=== PATIENT | female | born 1965 | race Caucasian/White ===

== ENCOUNTER → 2016-11-05 | Outpatient (CLI) | payer OTHER ==
[~2016-11-05] MED LIST: CLC100 PO; CLTP PO; CYAN250T PO; IBUP600T44 PO; LEVO100T7 PO; LEVO112T2 PO; MISCCAP80 PO; MULT-506 PO; OXYC-57 PO; SENNTAB23 PO; SYN112 PO
[2016-11-05 18:19] LABS: THYROID STIMULATING HORMONE 0.109 uIu/ml (0.300-4.500)
== END | disposition home or self-care (01) ==
LOC: C.LAB1850 16:58
PROVIDERS: ATTEND Nurse Practitioner Adult Health
DX: E03.9 Hypothyroidism, unspecified (principal)

== ENCOUNTER → 2016-11-21 | Outpatient (CLI) | payer OTHER | END | disposition home or self-care (01) | LOC: C.LABSPEC 10:52 | PROVIDERS: ATTEND Family Medicine | DX: J02.9 Acute pharyngitis, unspecified (principal) ==

== ENCOUNTER → 2017-01-27 | Outpatient (CLI) | payer OTHER ==
[2017-01-27 09:40] LABS: HEMATOCRIT 39.9 % (37-47); MEAN CELL VOLUME 92.4 fL (80-100); MEAN CORPUSCULAR HEMOGLOBIN 30.1 pg (25-34); MEAN CORPUSCULAR HGB CONC 32.6 g/dl (32-36); MEAN PLATELET VOLUME 10.6 fL (7.4-10.4); PLATELET COUNT 260 K/uL (130-400); RED BLOOD COUNT 4.32 M/uL (4.2-5.4); WHITE BLOOD COUNT 5.33 K/uL (4.8-10.8)
[2017-01-27 09:54] LABS: ALT/SGPT 19 U/L (12-78); AST/SGOT 9 U/L (15-37); BLOOD UREA NITROGEN 13 mg/dl (7-18); BUN/CREATININE RATIO 20.2 (10-20); CALCIUM 8.8 mg/dl (8.5-10.1); CARBON DIOXIDE 28 mmol/L (21-32); CHLORIDE 109 mmol/L (98-107); CREATININE 0.65 mg/dl (0.60-1.20); GLUCOSE 85 mg/dl (70-99); POTASSIUM 3.6 mmol/L (3.5-5.1); SODIUM 143 mmol/L (136-145)
[2017-01-27 10:05] LABS: ALB/GLOB RATIO 1.3 (0.9-2); ALKALINE PHOSPHATASE 69 U/L (45-117); CHOLESTEROL 183 mg/dl (0-200); CHOLESTEROL/HDL RATIO 3.7; HDL CHOLESTEROL 49 mg/dl; LDL CHOLESTEROL CALCULATED 115 mg/dl; THYROID STIMULATING HORMONE 0.635 uIu/ml (0.300-4.500); TRIGLYCERIDES 97 mg/dl (0-150); VERY LOW DENSITY LIPOPROT CALC 19 mg/dl
== END | disposition home or self-care (01) ==
LOC: C.LAB1850 07:14
PROVIDERS: ATTEND Nurse Practitioner Adult Health
DX: Z13.220 Encounter for screening for lipoid disorders (principal); E03.9 Hypothyroidism, unspecified

== ENCOUNTER → 2017-04-04 | Outpatient (CLI) | payer OTHER ==
--- NOTE | 2017-04-04 15:09 | MAMMOGRAPHY REPORT ---
UNILATERAL LEFT DIGITAL DIAGNOSTIC MAMMOGRAM TOMOSYNTHESIS AND TARGETED LEFT ULTRASOUND: 04/04/2017 CLINICAL HISTORY: The patient reports a palpable tender left breast lump which she felt on Friday. S he reports it currently feels much smaller. She denies any breast erythema. TECHNIQUE: Breast tomosynthesis in addition to standard 2D mammography was performed. Left CC and M LO 2-D and tomosynthesis images were obtained. COMPARISON: Comparison is made to exams dated: 07/31/2016 mammogram, 11/24/2014 mammogram, 05/13/2013 m ammogram, 04/23/2012 mammogram, 03/26/2011 mammogram, and 03/21/2010 mammogram - [facility] enter. BREAST COMPOSITION: The tissue of the left breast is heterogeneously dense, which may obscure small masses. FINDINGS: A triangle marker zambrano the site of the palpable lump in the left upper outer quadrant. T here are numerous adjacent circumscribed benign-appearing masses within the left central/12 to 1:00 b reast in the region of the marker. Multiple other circumscribed benign appearing masses are also see n within the left breast. The masses are slightly fluctuating compared to prior exams. Given the mu ltiplicity and circumscribed nature of the masses, they likely represent cysts. Scattered benign-clara earing calcifications are not significantly changed, many of which demonstrate layering and are consi stent with milk of calcium. There are no suspicious masses, calcifications, or areas of architectura l distortion noted within the left breast mammographically. Targeted ultrasound was performed of the area of the palpable lump pointed out by the patient, in the left 12:00 periareolar region. At the site of the palpable lump there is an oval circumscribed anec hoic mass consistent with a simple cyst, measuring 2.2 x 1.7 x 3.8 cm. Numerous other round/oval cir cumscribed anechoic masses are also noted, consistent with cysts, including a 4.1 x 2.9 cm cyst in th e left subareolar breast, and a 2.4 x 2.4 cm cyst in the left breast at 12:00, 3 cm from the nipple. These correspond with the mammographic masses and are consistent with benign cysts. IMPRESSION: ACR BI-RADS CATEGORY 2: BENIGN, TARGETED ULTRASOUND ACR BI-RADS CATEGORY 2: BENIGN Multiple benign cysts seen within the left 12:00 and subareolar breast, which correspond with the pal pable lump pointed out by the patient. The largest cyst measures 4.1 cm. There is no mammographic o r targeted sonographic evidence of malignancy. Recommend clinical follow-up for the palpable left br east lump, and recommend routine bilateral screening mammograms which are due July 2017. The patient has been verbally notified of the results. Approximately 10% of breast cancers are not detected with mammography. A negative mammographic report should not delay biopsy if a clinically suggestive mass is present. Marlene Smith M.D. ah/:04/04/2017 14:54:43 Sec Reporting Consultant: Lili DENISE(Jin)(M), [facility] letter sent: Normal 1/2 BI-RADS Code: ACR BI-RADS Category 2: Benign Ultrasound BI-RADS: ACR BI-RADS Category 2: Benign
== END | disposition home or self-care (01) ==
LOC: C.MAMM 13:49
PROVIDERS: ATTEND Obstetrics & Gynecology
DX: N63 Unspecified lump in breast (principal)

== ENCOUNTER → 2017-05-30 | Day surgery (SDC) | payer OTHER ==
[2017-05-22 12:35] VITALS: BMI 27.0
[~2017-05-30] VITALS: Ht 170.2 cm; Wt 79.5 kg
[~2017-05-30] MED LIST changes: -CLC100 PO; -CLTP PO; -CYAN250T PO; -IBUP600T44 PO; +LIDOCAINE HCL 2% 2 ML VIAL (20MG/ML) ONE; -OXYC-57 PO; +PROPOFOL IV EMULSION 10 MG/ML 20 ML VIAL IV ONE; +SODIUM CHLORIDE 0.9% 500ML 500 ML IV ONE; -SYN112 PO
[2017-05-30 09:17] VITALS: Ht 170.2 cm; Wt 79.5 kg
--- NOTE | 2017-05-30 09:31 | Endo History and Physical ---
History & Physical Date of Service: May 30, 2017. Chief Complaint: ROUTINE SCREENING Referring Physician: DR. NEGRO History of Present Illness 51 yo CF who presents for screening colonoscopy. Past Surgical History Hx Cardiac Surgery: No Hx Internal Defibrillator: No Hx Pacemaker: No Hx Abdominal Surgery: Yes (HYSTER) Hx of Implantable Prosthesis: No Hx Post-Op Nausea and Vomiting: No Hx Cancer Surgery: No Hx Thoracic Surgery: No Hx Orthopedic: No Hx Urinary Tract Surgery: No Family History Colon CA Social History Smoking Status: Never Smoker Hx Substance Use: No Hx Alcohol Use: Yes (OCCASIONAL/SOCIAL) Allergies Coded Allergies: Chlorpheniramine (Verified Allergy, Unknown, HEART PALPITATIONS AND PANIC ATTACK, 05/22/17) Phenylpropanolamine (Verified Allergy, Unknown, HEART PALPITATIONS AND PANIC ATTACK, 05/22/17) Epinephrine (Verified Adverse Reaction, Severe, HEART PALPITATIONS, ) Cefdinir (Verified Adverse Reaction, Intermediate, HEART PALPITATIONS, ) Current Medications Reported Home Medications Medications Dose Route/Sig Max Daily Dose Days Date Category Dose Instructions Stool Softener (Sennosides-Docusate Sodium) 1 Tab Tab PO 05/30/17 Reported Probiotic (Probiotic Product) 1 Cap Cap 1 Cap PO QPM 05/22/17 Reported Levothyroxine Sodium 100 Mcg Tab 1 Tab PO Q2D 05/22/17 Reported ALTERNATING WITH 112MCG Synthroid (Levothyroxine Sodium) 112 Mcg Tab 112 Mcg PO Q2D 05/22/17 Reported ALTERNATING WITH 100MCG Multivitamin (Multivitamins) Tab 1 Tab PO QAM 10/10/10 Reported Vital Signs Weight (Kilograms): 79.55 Height (Feet): 5 Height (Inches): 7 Physical Exam General Appearance: WD/WN, no apparent distress Respiratory/Chest: Auscultation: breath sounds normal Cardiovascular: Heart Auscultation: RRR Abdomen: Bowel Sounds: normal Inspection & Palpation: soft, non-distended, no tenderness, guarding & rebound Assessment and Plan Assessment: 51 yo CF who presents for screening colonoscopy. Plan: Proceed with colonoscopy.
--- NOTE | 2017-05-30 10:23 | Discharge Instructions ---
Endoscopy Patient Instructions Date / Procedure(s) Performed May 30, 2017. Colonoscopy Allergy Information Coded Allergies: Chlorpheniramine (Verified Allergy, Unknown, HEART PALPITATIONS AND PANIC ATTACK, 05/22/17) Phenylpropanolamine (Verified Allergy, Unknown, HEART PALPITATIONS AND PANIC ATTACK, 05/22/17) Epinephrine (Verified Adverse Reaction, Severe, HEART PALPITATIONS, ) Cefdinir (Verified Adverse Reaction, Intermediate, HEART PALPITATIONS, ) Discharge Date / Findings May 30, 2017. Rectal polyp Internal hemorrhoids Medication Instructions OK to resume all medications today as prescribed Reported Home Medications Medications Dose Route/Sig Max Daily Dose Days Date Category Dose Instructions Stool Softener (Sennosides-Docusate Sodium) 1 Tab Tab PO 05/30/17 Reported Probiotic (Probiotic Product) 1 Cap Cap 1 Cap PO QPM 05/22/17 Reported Levothyroxine Sodium 100 Mcg Tab 1 Tab PO Q2D 05/22/17 Reported ALTERNATING WITH 112MCG Synthroid (Levothyroxine Sodium) 112 Mcg Tab 112 Mcg PO Q2D 05/22/17 Reported ALTERNATING WITH 100MCG Multivitamin (Multivitamins) Tab 1 Tab PO QAM 10/10/10 Reported Provider Instructions Activity Restrictions - No exercising or heavy lifting for 24 hours. - Do not drink alcohol the day of the procedure. - Do not drive a car or operate machinery until the day after the procedure. - Do not make any important decisions or sign important papers in 24 hours after the procedure. Following Day: - Return to full activity which may include returning to work/school. Diet Start your diet with liquids and light foods (jello, soup, juice, toast). Then eat your usual diet if not nauseated. Treatment For Common After Affects For mild abdominal pain, bloating, or excessive gas: - Rest - Eat lightly - Lie on right side Follow-Up Information Follow-up with DR. NEGRO as scheduled Anesthesia Information What You Should Know You have had a procedure that required some medicine to reduce anxiety and discomfort. This treatment is called moderate sedation. After receiving the treatment, you may be sleepy, but you will be able to breathe on your own. The effects of the treatment may last for several hours. Follow these instructions along with Activity/Diet recommendations noted above: * Do NOT do anything where dizziness or clumsiness would be dangerous. * Rest quietly at home today, then you can be up and about tomorrow. * Have a responsible person stay with you the rest of today. * You may have had an I.V. today. If so, you may take the dressing off later today. Recommendations Call your doctor if: * Trouble breathing * Continuous vomiting for more than 24 hours * Temperature above 101 degrees * Severe abdominal pain or bloating * Pain not relieved by pain medicine ordered * There is increased drainage or redness from any incision * A large amount of rectal bleeding greater than 2-3 tablespoons. (If you had a polyp/s removed or have hemorrhoids, a small amount of blood - from the rectum is to be expected.) * You have any unanswered questions or concerns. IN THE EVENT OF A SERIOUS EMERGENCY, GO TO THE NEAREST EMERGENCY ROOM Your discharge instructions were prepared by provider Gamaliel Cotton. Patient Instructions Signature Page Ktaharine Gates Patient (or Guardian) Signature/Date: I have read and understand the instructions given to me by my caregivers. Caregiver/RN/Doctor Signature/Date: The above-named patient and/or guardian has received patient instructions on this date. + Original Patient Signature Page (only) stays with chart. Please make copy for patient.
--- NOTE | 2017-05-30 10:32 | GI REPORT ---
Procedure Date: 05/30/2017 9:49 AM Procedure: Colonoscopy Indications: Screening for colorectal malignant neoplasm Medicines: Monitored Anesthesia Care Complications: No immediate complications. Estimated Blood Loss: Estimated blood loss: none. Procedure: Pre-Anesthesia Assessment: - Prior to the procedure, a History and Physical was performed, and patient medications and allergies were reviewed. The patient's tolerance of previous anesthesia was also reviewed. The risks and benefits of the procedure and the sedation options and risks were discussed with the patient. All questions were answered, and informed consent was obtained. Prior Anticoagulants: The patient has taken no previous anticoagulant or antiplatelet agents. ASA Grade Assessment: II - A patient with mild systemic disease. After reviewing the risks and benefits, the patient was deemed in satisfactory condition to undergo the procedure. After I obtained informed consent, the scope was passed under direct vision. Throughout the procedure, the patient's blood pressure, pulse, and oxygen saturations were monitored continuously. The scope was introduced through the anus and advanced to the terminal ileum. The colonoscopy was performed without difficulty. The patient tolerated the procedure well. The quality of the bowel preparation was good. The terminal ileum, ileocecal valve, appendiceal orifice, and rectum were photographed. Findings: A 4 mm polyp was found in the rectum. The polyp was sessile. The polyp was removed with a hot snare. Resection and retrieval were complete. Non-bleeding internal hemorrhoids were found during retroflexion. The hemorrhoids were small. Impression: - One 4 mm polyp in the rectum, removed with a hot snare. Resected and retrieved. - Non-bleeding internal hemorrhoids. Recommendation: - Resume previous diet. - Continue present medications. - Repeat colonoscopy for surveillance based on pathology results. - Return to primary care physician as previously scheduled. Gamaliel Cotton DO 05/30/2017 10:31:28 AM This report has been signed electronically. Note Initiated On: 05/30/2017 9:49 AM I attest to the content of the Intraoperative Record and orders documented therein, exceptions below
[2017-05-30 10:49] VITALS: BP 133/94; PULSE 58; O2SAT 99
--- NOTE | 2017-05-30 11:49 | Anesthesiology Progress Note ---
Anesthesia Post Op Note Date & Time May 30, 2017 at 11:49 Vital Signs Pain Intensity: 0 Vital Signs Past 12 Hours Date Time Temp Pulse Resp B/P (MAP) Pulse Ox O2 Delivery O2 Flow Rate FiO2 05/30/17 10:49 58 20 133/94 (107) 99 Room Air 05/30/17 10:34 72 20 140/80 (100) 99 Room Air 05/30/17 10:19 69 20 123/86 (98) 99 Room Air 05/30/17 09:31 36.7 71 18 126/87 (100) 97 Room Air Notes Mental Status: alert / awake / arousable, participated in evaluation Pt Amnestic to Procedure: Yes Nausea / Vomiting: adequately controlled Pain: adequately controlled Airway Patency, RR, SpO2: stable & adequate BP & HR: stable & adequate Hydration State: stable & adequate Anesthetic Complications: no major complications apparent
== END | disposition home or self-care (01) ==
LOC: C.GI 09:06
PROVIDERS: ATTEND Internal Medicine
DX: Z12.11 Encounter for screening for malignant neoplasm of colon (principal); D12.8 Benign neoplasm of rectum; K64.8 Other hemorrhoids; Z80.0 Family history of malignant neoplasm of digestive organs; Z79.899 Other long term (current) drug therapy

== ENCOUNTER → 2017-08-13 | Outpatient (CLI) | payer OTHER ==
[~2017-08-13] MED LIST changes: -LIDOCAINE HCL 2% 2 ML VIAL (20MG/ML) ONE; -PROPOFOL IV EMULSION 10 MG/ML 20 ML VIAL IV ONE; -SODIUM CHLORIDE 0.9% 500ML 500 ML IV ONE
--- NOTE | 2017-08-13 15:21 | MAMMOGRAPHY REPORT ---
BILATERAL DIGITAL DIAGNOSTIC MAMMOGRAM TOMOSYNTHESIS AND TARGETED RIGHT ULTRASOUND: 08/13/2017 CLINICAL HISTORY: Callback from screening mammogram for right breast asymmetry and associated calcifi cations as well as left breast calcifications. TECHNIQUE: Breast tomosynthesis in addition to standard 2D mammography was performed. Spot magnific ation bilateral cc and ML views and spot compression right CC and MLO tomosynthesis images including C views were obtained. COMPARISON: Comparison is made to exams dated: 08/04/2017 mammogram, 04/04/2017 ultrasound, 04/04/2017 ma mmogram, 07/31/2016 mammogram, 11/24/2014 mammogram, and 04/23/2012 mammogram - [facility]. BREAST COMPOSITION: The tissue of both breasts is heterogeneously dense, which may obscure small mas ses. FINDINGS: Spot magnification views of the left breast demonstrate grouped calcifications in the left upper outer quadrant, which are smudgy and amorphous on the cc view and demonstrate layering on the lateral view, consistent with benign milk of calcium. Additionally, the calcifications do not appear significantly changed to prior exams including the 2015 and 2014 exams. Spot compression views demonstrate an ill-defined asymmetry within the right upper outer quadrant in association with calcifications, with asymmetry measuring approximately 13 mm on the cc tomosynthesis images. The calcifications in association with the asymmetry are amorphous on the cc view and at le ast one of the calcifications demonstrates probable layering on the lateral view, suggestive of milk of calcium. The calcifications appear stable compared to prior exams including the 2015 and 2014 exa ms. Targeted ultrasound was performed of the right upper outer quadrant in the region of the mammographic asymmetry. In the right breast at 9:00, 1 cm from the nipple, there is an anechoic 6 x 7 x 4 mm mas s consistent with fibrocystic changes. Another anechoic circumscribed mass with a thin internal sept ation measuring 4 x 5 mm is seen within the right breast at 9:00, 2 cm from the nipple, consistent wi th fibrocystic changes. In the right breast at 9:00, 4 cm from the nipple, there is a lobulated slig htly hypoechoic non-circumscribed mass which measures 1.5 x 1.1 cm. A few small anechoic cystic port ions are seen, which contain echogenic foci which likely represent the calcifications seen mammograph ically. This is felt to correspond with the mammographic asymmetry and associated calcifications. W hile this could represent focal fibrocystic changes, a solid and cystic mass is not excluded. Recomm end ultrasound guided core needle biopsy for further evaluation. IMPRESSION: ACR BI-RADS CATEGORY 4: SUSPICIOUS, TARGETED ULTRASOUND ACR BI-RADS CATEGORY 4: SUSPICIO US 1. Hypoechoic 1.5 cm mass in the right breast at 9:00 on ultrasound, which is felt to correspond wit h the mammographic asymmetry with associated calcifications. While this could represent fibrocystic changes, a mixed cystic and solid mass is not excluded, therefore, ultrasound guided biopsy is recomm ended for further evaluation. 2. Grouped calcifications in the left upper outer quadrant are benign and compatible with milk of ca lcium. A phone call was made to the physician's office to confirm faxed results were received. The patient has been verbally notified of the results. She tentatively scheduled the biopsy before leaving the [facility]. Approximately 10% of breast cancers are not detected with mammography. A negative mammographic report should not delay biopsy if a clinically suggestive mass is present. Marlene Smith M.D. ah/:08/13/2017 10:50:21 White [employer] Pan Tank Operator: Maggy MURPHY)(Koko), [facility] letter sent: Abnormal 4/5 BI-RADS Code: ACR BI-RADS Category 4: Suspicious Ultrasound BI-RADS: ACR BI-RADS Category 4: Suspici ous
== END | disposition home or self-care (01) ==
LOC: C.MAMM 08:06
PROVIDERS: ATTEND Nurse Practitioner Adult Health
DX: Z12.31 Encounter for screening mammogram for malignant neoplasm of breast (principal); N64.89 Other specified disorders of breast; N63.10 Unspecified lump in the right breast, unspecified quadrant

== ENCOUNTER → 2017-08-18 | Outpatient (CLI) | payer OTHER ==
--- NOTE | 2017-08-18 08:20 | Discharge Instructions ---
Discharge Instructions Procedure Procedure Date: Aug 18, 2017. Reason for visit: Right Mass. Discharge Discharge Date: Aug 18, 2017. Discharge Diagnosis: status post breast biopsy Instructions Activity Recommendations: Additional Limitations (see below) Return to School/Work: no limitations Recommended Home Diet: No Limitations Provider Instructions: ACTIVITY RECOMMENDATIONS: * No lifting, pushing, pulling or exercising the affected side for three days. RETURN TO SCHOOL/WORK: * You may return to work/school after the procedure, but do not perform any strenuous activities for 24 to 48 hours. MEDICATIONS: * Tylenol (two 325 mg) every four to six hours if needed for mild pain (if not allergic to Tylenol). DIET: * Resume previous diet. SPECIAL CARE INSTRUCTIONS: * Keep biopsy site dry for 24 hours. May shower after 24 hours, but do not soak (bathe) incision. * May remove Tegaderm (plastic patch) tomorrow AFTER showering. * Leave the steri-strips on for one week. Allow the steri-strips to fall off by themselves. If not off after one week, you may remove them. You may place a Bandaid crosswise over the strips, if desired. * Apply ice 10 minutes on and 10 minutes off as needed. * Wear a bra at bedtime to sleep more comfortably for 2-3 days. * Your referring physician should have the results after approximately 5 to 7 business days. * Call for unusual bleeding, fever, drainage, etc or if you have any questions call during normal business hours or after hours call Dr Smith, . FOLLOW UP VISIT: Follow-up with Referring Physician as scheduled. Allergies Coded Allergies: Chlorpheniramine (Verified Allergy, Unknown, HEART PALPITATIONS AND PANIC ATTACK, 05/22/17) Phenylpropanolamine (Verified Allergy, Unknown, HEART PALPITATIONS AND PANIC ATTACK, 05/22/17) Epinephrine (Verified Adverse Reaction, Severe, HEART PALPITATIONS, ) Cefdinir (Verified Adverse Reaction, Intermediate, HEART PALPITATIONS, ) Reji Richards Recommendations: Call your doctor if: * Temperature above 101 degrees * Pain not relieved by pain medicine ordered * There is increased drainage or redness from any incision * You have any unanswered questions or concerns. Your Doctors Instructions noted above were prepared by provider Marlene Smith. Patient Signature Section: Patient Instructions Signature Page Katharine Gates Patient (or Guardian) Signature/Date: I have read and understand the instructions given to me by my caregivers. Caregiver/RN/Doctor Signature/Date: The above-named patient and/or guardian has received patient instructions on this date. + Original Patient Signature Page (only) stays with chart. Please make copy for patient.
--- NOTE | 2017-08-18 14:44 | MAMMOGRAPHY REPORT ---
ULTRASOUND GUIDED BIOPSY RIGHT BREAST: 08/18/2017 CLINICAL HISTORY: Right 9:00 breast mass. PATIENT CONSENT: The procedure, risks and benefits were discussed with the patient and informed writt en consent was obtained. A timeout was performed immediately prior to the procedure. PROCEDURE DESCRIPTION: With ultrasound guidance, aseptic technique, and lidocaine as the local anesth etic (1% lidocaine to anesthetize the skin and 1% lidocaine with epinephrine to anesthetize the deepe r tissues), the mass of concern in the right 9:00 breast was sampled 4 times with a 14-gauge Achieve biopsy needle. Immediately thereafter, with ultrasound guidance, aseptic technique, and lidocaine as the local anesthetic, a metallic localizer clip was placed centrally in the mass. Direct pressure wa s applied to the site immediately post procedure and hemostasis was achieved. Postprocedure unilater al mammograms were performed to confirm placement of the clip in the expected location of the breast mass. The patient tolerated the procedure without complication. She was given wound care instructio ns. The specimens were sent to pathology for analysis. COMPARISON: Comparison is made to exams dated: 08/13/2017 mammogram, 08/13/2017 ultrasound, 7 mammogram, 04/04/2017 ultrasound, 04/04/2017 mammogram, and 07/31/2016 mammogram - [facility]. IMPRESSION: ULTRASOUND GUIDED BIOPSY Ultrasound guided biopsy of the right 9:00 breast mass, with clip placement. The patient will receive pathology results from her referring provider. Marlene Smith M.D. ah/:08/18/2017 08:23:37 Sales Agent Trading Stamps: Lili MURPHY)(Koko), [facility]
--- NOTE | 2017-08-18 14:47 | MAMMOGRAPHY REPORT ---
UNILATERAL RIGHT DIGITAL DIAGNOSTIC MAMMOGRAM TOMOSYNTHESIS: 08/18/2017 CLINICAL HISTORY: Status post right breast biopsy. TECHNIQUE: Breast tomosynthesis in addition to standard 2D mammography was performed. Postprocedura l right CC and ML tomosynthesis images including C views were obtained. COMPARISON: Comparison is made to exams dated: 08/13/2017 mammogram, 08/13/2017 ultrasound, 04/04/2017 ultrasound, 08/04/2017 mammogram, 04/04/2017 mammogram, and 07/31/2016 mammogram - [facility]. BREAST COMPOSITION: The tissue of the right breast is heterogeneously dense, which may obscure small masses. FINDINGS: A new biopsy marker clip is seen at the site of the biopsied mass and associated calcifica tions in the right 9:00 breast. No significant postbiopsy hematoma is seen. IMPRESSION: POST PROCEDURE IMAGING FOR MARKER PLACEMENT New biopsy marker clip status post right breast biopsy. Pathology results are pending. Approximately 10% of breast cancers are not detected with mammography. A negative mammographic report should not delay biopsy if a clinically suggestive mass is present. Marlene Smith M.D. /:08/18/2017 08:34:43 Combat Rifle Crewmember: Lili DENISE(Jin)(M), [facility] BI-RADS Code: Post Procedure Imaging For Marker Placement
== END | disposition home or self-care (01) ==
LOC: C.MAMM 07:56
PROVIDERS: ATTEND Nurse Practitioner Adult Health
DX: N63.10 Unspecified lump in the right breast, unspecified quadrant (principal); D24.1 Benign neoplasm of right breast; N60.91 Unspecified benign mammary dysplasia of right breast

== ENCOUNTER 2017-10-22 16:52 | Emergency (ER) | payer OTHER ==
[~2017-10-22] VITALS: Ht 170.2 cm; Wt 84.2 kg
[2017-10-22 16:54] VITALS: BP 183/100; PULSE 77; TEMP 36.7; O2SAT 98; Ht 170.2 cm; Wt 84.2 kg
--- NOTE | 2017-10-23 20:39 | EMERGENCY ROOM VISIT NOTE ---
ED Visit Note First contact with patient: 17:01 Chief Complaint: Cut the top of my head at work. History of Present Illness: Ms. Gates is a 52-year-old white female who ambulates into the ED accompanied by female friend complaining of a laceration to the top of the head. Patient reports less than an hour ago she was at work. She was looking in a over the head cupboard and reports some of the office supplies fell out of the cupboard. She picked up the items and as she was standing up she struck the top of her head on the door of the cupboard and sustained a laceration to the top of the head. She does report after striking her head she fell to the floor but did not re- strike her head. She denies there was a loss of consciousness. She reports coworkers controlled her bleeding. She reports since the injury she has had a headache in the area of her laceration, she has been having some mild dizziness, mild blurry vision and nausea without vomiting. Currently she describes her headache as a pressure and throbbing sensation in the area of her laceration. She rates her discomfort 6/10. Her pain is nonradiating. Her pain worsens with palpation of her laceration. She has not identified any alleviating factors related to her pain. She has not taken medications for pain prior to arrival at the hospital. She denies any hearing changes, difficulty speaking, difficulty swallowing, difficulty ambulating/coordinating body movements, neck pain, extremity weakness /numbness/tingling. Review of Systems: As noted above in history of present illness. 8 body systems were reviewed and found to be negative as noted above. Past Medical History: Hypothyroidism, status post hysterectomy. Current Medications: Multivitamins, Synthroid, probiotic, stool softener. Allergies to Medications: Chlorpheniramine, epinephrine, phenylpropanolamine, cefdinir. Social History: Patient is currently employed; she feels safe in her home environment; she denies tobacco use and admits to alcohol use. Tetanus Immunization Status: Patient is unsure. Physical Examination: Vital Signs: Date Time Temp Pulse Resp B/P (MAP) Pulse Ox O2 Delivery O2 Flow Rate FiO2 10/22/17 16:54 36.7 77 18 183/100 98 Room Air GENERAL: 52-year-old female in mild distress due to pain, nontoxic-appearing, afebrile and hemodynamically stable. NEUROLOGICAL: Awake, alert and oriented to person, place and time. Answering questions appropriately and following commands. Normal gait. Good hand eye coordination. Cranial nerves II through XII grossly intact. Good short-term and long-term recall. SKIN: Warm, dry and pink. Scalp: Over the top of the head patient has a subcentimeter subcutaneous laceration. There was no active bleeding at the time of my evaluation. It was noted that there was blood throughout her hair. HEENT: Atraumatic and normocephalic. Skull: No bony deformity, depressions, swelling or ecchymosis. Moderate tenderness in the area of her laceration. No raccoon's eyes or solano signs. No drainage from the ears of the nostril; no hemotympanum. PERRLA. EOMI without nystagmus. No malocclusion. No intraoral trauma. Airway patent. Speech is clear and normal. Trachea midline. No jugular venous distention. BACK: No tenderness over the bony cervical or thoracic spines. Full range of motion of the cervical spine. ED Course: Patient is assessed as noted above. Patient's medication list was reviewed. Patient's wound was cleansed with antibacterial soap and water and a small amount of antibiotic ointment was placed over the wound. Patient was educated about today's findings and instructed on her treatment plan ; she verbalized understanding and agreement with this plan. Clinical Impression: Superficial scalp laceration. Possible mild closed head injury. Disposition: Patient discharged home in stable condition; prior to departure he was reassessed and subjectively reported she was feeling worse and rated her discomfort 7/10. Plan: Patient was encouraged to alternate ibuprofen and acetaminophen as needed for pain every 6 hours. Patient was encouraged use ice over areas of pain and swelling 4-5 times a day for 20-30 minutes. Wound care and signs of infection were discussed with the patient. Signs of head injury were discussed with the patient. Patient was encouraged to avoid strenuous activities and alcohol use for the next 48 hours. Patient is encouraged to follow-up with her PCP or return to the ED for any signs of infection. Patient was encouraged return to the ED for any signs of head injury or any new/ concerning symptoms.
== END 2017-10-22 17:18 | disposition home or self-care (01) ==
LOC: C.EDB 16:55 → C.EDD 17:18
DX: S01.01XA Laceration without foreign body of scalp, initial encounter (principal); W22.8XXA Striking against or struck by other objects, initial encounter; Y99.0 Civilian activity done for income or pay; Y92.89 Other specified places as the place of occurrence of the external cause; E03.9 Hypothyroidism, unspecified; Z90.710 Acquired absence of both cervix and uterus; Z79.899 Other long term (current) drug therapy

== ENCOUNTER → 2018-02-03 | Outpatient (CLI) | payer OTHER ==
[~2018-02-03] MED LIST changes: -SENNTAB23 PO
== END | disposition home or self-care (01) ==
LOC: C.LAB1850 07:01
PROVIDERS: ATTEND Nurse Practitioner Family
DX: H69.80 Other specified disorders of Eustachian tube, unspecified ear (principal)